=== PATIENT | female | born 1990 | race Caucasian/White ===

== ENCOUNTER 2021-05-03 19:39 | Emergency (ER) | payer OTHER ==
[~2021-05-03] VITALS: Ht 160 cm; Wt 53.1 kg
[2021-05-03 19:45] VITALS: BP 127/76
[2021-05-03] MEDS ORDERED: BACTRIM DS TAB1 EAC1 PO (20:39)
[2021-05-03] MEDS ORDERED: VENLAFAXINE HCL25 MG (21:24)
== END 2021-05-04 01:18 | disposition home or self-care (01) ==
LOC: ER 19:39
DX: S61.210A Laceration without foreign body of right index finger without damage to nail, initial encounter (principal); Z88.8 Allergy status to other drugs, medicaments and biological substances; W25.XXXA Contact with sharp glass, initial encounter; Y93.E9 Activity, other interior property and clothing maintenance; Y92.89 Other specified places as the place of occurrence of the external cause; Y99.8 Other external cause status